=== PATIENT | female | born 1965 | race Caucasian/White ===

== ENCOUNTER 2020-09-11 22:56 | Emergency (ER) | payer OTHER ==
[2020-09-12] MEDS ORDERED: PERCOCET 5/325 T1 EA PO (02:40)
== END 2020-09-12 03:05 | disposition home or self-care (01) ==
LOC: ER1 22:56
DX: S50.12XA Contusion of left forearm, initial encounter (principal); F17.210 Nicotine dependence, cigarettes, uncomplicated; W19.XXXA Unspecified fall, initial encounter; Z90.710 Acquired absence of both cervix and uterus
CPT/HCPCS: 29240; 73090; 73110; 99283